=== PATIENT | male | born 1965 | race Caucasian/White ===

== ENCOUNTER 2019-01-20 17:54 | Emergency (ER) | payer BC, SELFPAY ==
[~2019-01-20] VITALS: Ht 172.7 cm; Wt 83.2 kg
[2019-01-20] MEDS ORDERED: SUCCINYLCHOLINE 100 MG/5 ML SYRINGE (J0330) ONE (17:55)
[2019-01-20] MEDS ORDERED: ETOMIDATE INJ 20MG/10ML VIAL ONE (17:55)
[2019-01-20] MEDS ORDERED: VECURONIUM BROMIDE 10 MG VIAL ONE (17:55)
[2019-01-20] MEDS ORDERED: DULC5TAB PO (18:08)
[2019-01-20] MEDS ORDERED: MIRA3350 PO (18:08)
[2019-01-20 19:15] LABS: BASO # 0.1 10^3/uL (0.0-0.2); BASO % 0.9 % (0.0-1.0); EOS % 0.4 % (0.0-3.0); HEMATOCRIT 44.5 % (42.0-52.0); HEMOGLOBIN 14.9 g/dl (13.5-17.5); LYMPH # 2.2 10^3/uL (1.5-4.5); LYMPH % 23.1 % (24.0-44.0); MEAN CORPUSCULAR HEMOGLOBIN 32.5 pg (27.0-33.0); MEAN CORPUSCULAR HGB CONC 33.5 g/dl (32.0-36.5); MEAN CORPUSCULAR VOLUME 96.9 fl (80.0-96.0); MONO # 1.1 10^3/uL (0.0-0.8); MONO % 12.2 % (0.0-5.0); NEUTROPHILS # 5.9 10^3/uL (1.8-7.7); NEUTROPHILS % 63.1 % (36.0-66.0); PLATELET COUNT, AUTOMATED 224 10^3/uL (150-450); RED BLOOD COUNT 4.59 10^6/uL (4.30-6.10); WHITE BLOOD COUNT 9.4 10^3/uL (4.0-10.0)
[2019-01-20 19:26] LABS: INR 1.4; PARTIAL THROMBOPLASTIN TIME 29.5 SECONDS (25.0-38.4); PROTHROMBIN TIME 16.9 SECONDS (11.8-14.0)
[2019-01-20] MEDS ORDERED: FUROSEMIDE 20 MG/2 ML VIAL (J1940) IV ONE (19:30)
[2019-01-20 19:34] LABS: ETHYL ALCOHOL (ETHANOL) 0.239 % (0.000-0.010)
[2019-01-20 19:42] LABS: ALBUMIN 3.6 GM/DL (3.2-5.2); ALT/SGPT 88 U/L (12-78); BILIRUBIN,DIRECT 0.5 MG/DL (0.0-0.2); BILIRUBIN,TOTAL 0.9 MG/DL (0.2-1.0); BLOOD UREA NITROGEN 10 MG/DL (7-18); CALCIUM LEVEL 8.9 MG/DL (8.5-10.1); CARBON DIOXIDE LEVEL 21 MEQ/L (21-32); CHLORIDE LEVEL 109 MEQ/L (98-107); CK-MB VALUE MASS 3.1 NG/ML (<3.6); CPK CREATINE PHOSPHOKINASE 254 U/L (39-308); CREATININE FOR GFR 0.89 MG/DL (0.70-1.30); GLOMERULAR FILTRATION RATE > 60.0 (>56); GLUCOSE, FASTING 99 MG/DL (70-100); LIPASE 70 U/L (73-393); MB/CK RELATIVE INDEX 1.22 (< OR =4); POTASSIUM SERUM 3.9 MEQ/L (3.5-5.1); SODIUM LEVEL 141 MEQ/L (136-145); TOTAL PROTEIN 6.3 GM/DL (6.4-8.2); TROPONIN I 1.36 NG/ML (< 0.10)
[2019-01-20] MEDS ORDERED: FUROSEMIDE 100 MG/10 ML VIAL (J1940) IV ONE (20:15)
[2019-01-20] MEDS ORDERED: FLECAINIDE 50MG TABLET PO ONE (20:15)
[2019-01-20] MEDS ORDERED: ISOVUE-370 76% 100ML VIAL (Q9967) As Ordered ONE (20:25)
[2019-01-20] MEDS ORDERED: METOPROLOL 5 MG/5 ML VIAL IV STA ×2 (21:07→23:22)
[2019-01-20] MEDS: FLECAINIDE 50MG TABLET PO ONE ×2 (21:26→21:30)
[2019-01-20] MEDS ORDERED: NOREPINEPHRINE BITARTRATE 8 MG in D5W 492 ML IV SCH (22:15)
--- NOTE | 2019-01-20 22:21 | REPVR ---
EXAM: CT Angiography Chest With Contrast EXAM DATE/TIME: 01/20/2019 9:01 PM CLINICAL HISTORY: 53 years old, male; Chest pain; Additional info: SOB, pitting le edema, afib new TECHNIQUE: Imaging protocol: Axial computed tomographic angiography images of the chest with intravenous contrast using CT angiography protocol. Coronal and sagittal reformatted images were created and reviewed. 3D rendering: MIP reconstructed images were created and reviewed. Radiation optimization: All CT scans at this facility use at least one of these dose optimization techniques: automated exposure control; mA and/or kV adjustment per patient size (includes targeted exams where dose is matched to clinical indication); or iterative reconstruction. Contrast material: ISOVUE 370;Contrast volume: 100 ml;Contrast route: IV; COMPARISON: No relevant prior studies available. FINDINGS: Pulmonary arteries: Contrast opacification satisfactory. No intraluminal filling defect. Aorta: Unremarkable. No aneurysm or dissection. Inferior vena cava: Reflux of contrast into the intrahepatic IVC and hepatic veins, suggesting right-sided heart failure. Lungs: Mild linear stranding and groundglass, likely due to atelectasis and/or scarring. No focal consolidation. Pleural space: Small right pleural effusion. No pneumothorax. Heart: Mild to moderate cardiomegaly. No pericardial effusion. Mediastinum: Small hiatal hernia. Diaphragm: Elevated right hemidiaphragm. Lymph nodes: Small mediastinal lymph nodes, nonspecific in appearance. No pathologically enlarged lymph nodes. Bones/joints: No acute osseous abnormality. Degenerative changes. Old fracture of the sternal body. Soft tissues: Unremarkable. IMPRESSION: 1. No CT evidence of pulmonary embolism. 2. Cardiomegaly with evidence of right-sided heart failure. 3. Small right pleural effusion. 4. Additional findings, as above. Electronically signed by: Arvin Hinkle On 01/20/2019 22:21:16 PM
--- NOTE | 2019-01-20 22:29 | REPVR ---
EXAM: CT Abdomen and Pelvis With Contrast EXAM DATE/TIME: 01/20/2019 9:01 PM CLINICAL HISTORY: 53 years old, male; Abdominal pain; Generalized; Additional info: Epigastric, llq abd pain, SOB TECHNIQUE: Imaging protocol: Axial computed tomography images of the abdomen and pelvis with intravenous contrast. Coronal and sagittal reformatted images were created and reviewed. Radiation optimization: All CT scans at this facility use at least one of these dose optimization techniques: automated exposure control; mA and/or kV adjustment per patient size (includes targeted exams where dose is matched to clinical indication); or iterative reconstruction. Contrast material: ISOVUE 370;Contrast volume: 100 ml;Contrast route: IV; COMPARISON: No relevant prior studies available. FINDINGS: Liver: Unremarkable. Gallbladder and bile ducts: Mild to moderate gallbladder wall thickening and/or pericholecystic edema. No radiodense gallstones. Pancreas: Unremarkable. Spleen: Unremarkable. Adrenals: Unremarkable. Kidneys and ureters: 4.9 x 2.8 cm right renal cyst. No radiodense calculi. No hydronephrosis. Stomach and bowel: No bowel wall thickening. No obstruction. No pneumatosis. Appendix: Appendix not identified with certainty but no right lower quadrant inflammatory change to suggest acute appendicitis. Intraperitoneal space: Trace nonspecific ascites. No organized fluid collection. No free air. Vasculature: Unremarkable. No aneurysm. Lymph nodes: No pathologically enlarged lymph nodes. Bladder: Mild circumferential urinary bladder wall thickening. Reproductive: Unremarkable. Bones/joints: No acute osseous abnormality. Osteopenia. Degenerative changes. Soft tissues: Small, fat-containing umbilical hernia. IMPRESSION: 1. Mild to moderate gallbladder wall thickening and/or pericholecystic edema without radiodense gallstones. If clinically indicated, ultrasound or HIDA scan would provide a more sensitive evaluation for acute gallbladder pathology. 2. Mild circumferential urinary bladder wall thickening. Correlate with urinalysis to exclude cystitis. 3. Additional findings, as above. Electronically signed by: Arvin Hinkle On 01/20/2019 22:29:43 PM
[2019-01-20] MEDS ORDERED: IPRATROPIUM 0.5MG/ALBUTEROL 2.5MG INH SOL UD 3ML (DUONEB)(J7620) NEB SCH (23:00)
[2019-01-20 23:40] VITALS: BP 128/77
[2019-01-20] MEDS ORDERED: SUCCINYLCHOLINE INJ 200 MG/10 ML VIAL (J0330) IV ONE (23:45)
[2019-01-20] MEDS ORDERED: ETOMIDATE INJ 20MG/10ML VIAL IV ONE (23:45)
[2019-01-20] MEDS ORDERED: VECURONIUM BROMIDE 10 MG VIAL IV ONE (23:45)
--- NOTE | 2019-01-20 23:46 | REPVR ---
EXAM: CT Head Without Contrast EXAM DATE/TIME: 01/20/2019 11:34 PM CLINICAL HISTORY: 53 years old, male; Other: SOB; Additional info: Fall TECHNIQUE: Imaging protocol: Computed tomography images of the head without contrast. Radiation optimization: All CT scans at this facility use at least one of these dose optimization techniques: automated exposure control; mA and/or kV adjustment per patient size (includes targeted exams where dose is matched to clinical indication); or iterative reconstruction. COMPARISON: No relevant prior studies available. FINDINGS: Brain: No CT evidence of acute intracranial hemorrhage or acute territorial infarction. No significant mass effect or midline shift. Basal cisterns patent. Ventricles: Normal in size and configuration. Bones/joints: No acute osseous abnormality. Sinuses: Minimal ethmoid and left maxillary sinus mucosal thickening. Mastoid air cells: Grossly unremarkable. Soft tissues: Grossly unremarkable. IMPRESSION: 1. No CT evidence of acute intracranial pathology. 2. Additional findings, as above. Electronically signed by: Arvin Hinkle On 01/20/2019 23:46:45 PM
[2019-01-21] MEDS ORDERED: DIGOXIN INJ 0.5 MG/2 ML AMP (J1160) IV STA (00:16)
[2019-01-21] MEDS ORDERED: PROPOFOL 1,000 MG/100 ML VIAL As Ordered ONE ×2 (00:33→03:38)
[2019-01-21 00:40] LABS: CK-MB VALUE MASS 3.1 NG/ML (<3.6); MB/CK RELATIVE INDEX 1.26 (< OR =4); TROPONIN I 1.35 NG/ML (< 0.10)
[2019-01-21] MEDS ORDERED: PROPOFOL 1,000 MG in APPROPRIATE DILUENT 1 EA IV STA (00:40)
[2019-01-21 03:32] VITALS: BP 120/84
--- NOTE | 2019-01-21 05:42 | ECGEPIP ---
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
--- NOTE | 2019-01-21 09:17 | REP ---
PORTABLE CHEST X-RAY: Single view. 11:03 p.m. film. HISTORY: Line placement. COMPARISON STUDY: 10:38 p.m. film January 20, 2019. FINDINGS: A right internal jugular central venous line has been inserted with its tip in the expected location of the superior vena cava. There is no evidence of pneumothorax. Endotracheal tube remains in good position at the level of proximal clavicles. Moderate cardiac enlargement is again noted. No evidence of infiltrate, effusion, or pulmonary edema. Electronically Signed by Silas Ruffin MD 01/21/2019 07:29 P
--- NOTE | 2019-01-21 09:44 | REP ---
Portable chest x-ray: Single view. History: Post intubation. No comparison chest x-ray. Comparison is made with chest CT study from earlier this date. Findings: Moderate cardiomegaly is observed. An endotracheal tube has been passed into good position at the level of the proximal clavicles. EKG electrodes are seen. The lungs are somewhat hypoinflated no focal infiltrate is seen. There is no evidence of pleural effusion or pulmonary edema. There is a skin fold overlying the left chest. Impression: Cardiomegaly. Endotracheal tube in good position. Electronically Signed by Silas Ruffin MD 01/21/2019 09:35 A
== END 2019-01-21 03:35 | disposition short-term general hospital (02) ==
LOC: M ED 17:54
DX: R00.0 Tachycardia, unspecified (principal); I50.9 Heart failure, unspecified; I48.91 Unspecified atrial fibrillation; I45.10 Unspecified right bundle-branch block; I51.7 Cardiomegaly; F10.10 Alcohol abuse, uncomplicated; F17.220 Nicotine dependence, chewing tobacco, uncomplicated; Z79.899 Other long term (current) drug therapy
CPT/HCPCS: 31500; 36556; 36600; 51702; 70450; 71045; 71275; 74177; 80048; 80076; 82140; 82550; 82553; 82803; 83605; 83690; 83880; 84484; 85025; 85610; 85730; 93005; 96374; 96375; 96376; 99291; G0480; J0330; J1160; J1940; Q9967

== ENCOUNTER 2019-03-20 07:45 | Emergency (ER) | payer OTHER, SELFPAY ==
[~2019-03-20] VITALS: Ht 172.7 cm; Wt 74.5 kg
[~2019-03-20 07:45] MED LIST: DULC5TAB PO; MIRA3350 PO
[2019-03-20] MEDS ORDERED: FURO40TA2 (07:58)
[2019-03-20] MEDS ORDERED: WARF4TAB51 (07:58)
[2019-03-20] MEDS ORDERED: ATOR40TA75 (07:58)
[2019-03-20] MEDS ORDERED: LEXA5TAB13 (07:58)
[2019-03-20] MEDS ORDERED: ENTR1TAB (07:58)
[2019-03-20] MEDS ORDERED: THIA100T14 (07:58)
[2019-03-20] MEDS ORDERED: METO1TAB7 (07:58)
[2019-03-20] MEDS ORDERED: SPIR-10 (07:58)
[2019-03-20] MEDS ORDERED: MAG400TA (07:58)
[2019-03-20] MEDS ORDERED: FOLI1TAB11 (07:58)
[2019-03-20] MEDS ORDERED: WARF-23 PO (07:58)
[2019-03-20] MEDS ORDERED: ASPI-1 PO (07:58)
[2019-03-20 08:37] LABS: BASO % 0.3 % (0.0-1.0); EOS # 0.1 10^3/uL (0.0-0.5); EOS % 0.5 % (0.0-3.0); HEMOGLOBIN 15.7 g/dl (13.5-17.5); LYMPH % 7.7 % (24.0-44.0); MEAN CORPUSCULAR HEMOGLOBIN 31.9 pg (27.0-33.0); MEAN CORPUSCULAR HGB CONC 34.1 g/dl (32.0-36.5); MEAN CORPUSCULAR VOLUME 93.5 fl (80.0-96.0); MONO # 0.7 10^3/uL (0.0-0.8); NEUTROPHILS # 11.4 10^3/uL (1.5-8.5); PLATELET COUNT, AUTOMATED 242 10^3/uL (150-450); RED BLOOD COUNT 4.92 10^6/uL (4.30-6.10); WHITE BLOOD COUNT 13.3 10^3/uL (4.0-10.0)
[2019-03-20] MEDS ORDERED: MORPHINE 4 MG/ML 1ML VIAL/SYRINGE (J2270) IV ONE (08:45)
[2019-03-20] MEDS ORDERED: NS 1,000 ML IV ONE (08:45)
[2019-03-20] MEDS ORDERED: ONDANSETRON 4MG/2ML VIAL (J2405) IV ONE (08:45)
[2019-03-20 08:47] LABS: INR 2.58; PROTHROMBIN TIME 27.5 SECONDS (11.8-14.0)
[2019-03-20 08:48] LABS: PARTIAL THROMBOPLASTIN TIME 36.5 SECONDS (25.0-38.4)
[2019-03-20 09:08] LABS: BLOOD UREA NITROGEN 10 MG/DL (7-18); CREATININE FOR GFR 0.84 MG/DL (0.70-1.30); GLUCOSE, FASTING 110 MG/DL (70-100)
[2019-03-20 09:09] LABS: ALBUMIN 4.3 GM/DL (3.2-5.2); ALT/SGPT 25 U/L (12-78); BILIRUBIN,DIRECT 0.5 MG/DL (0.0-0.2); BILIRUBIN,TOTAL 1.7 MG/DL (0.2-1.0); CALCIUM LEVEL 9.8 MG/DL (8.5-10.1); CARBON DIOXIDE LEVEL 25 MEQ/L (21-32); CHLORIDE LEVEL 104 MEQ/L (98-107); GLOMERULAR FILTRATION RATE > 60.0 (>56); LIPASE 78 U/L (73-393); POTASSIUM SERUM 4.6 MEQ/L (3.5-5.1); SODIUM LEVEL 137 MEQ/L (136-145); TOTAL PROTEIN 7.5 GM/DL (6.4-8.2)
[2019-03-20] MEDS ORDERED: ISOVUE-370 76% 100ML VIAL (Q9967) As Ordered ONE (09:40)
--- NOTE | 2019-03-20 10:23 | REP ---
CT of the abdomen and pelvis with IV contrast, without bowel contrast for generalized abdominal pain: Comparison is 01/20/2019. The visualized lung oakley are unremarkable. The right pleural effusion on the prior study has resolved. The hepatic parenchyma, gallbladder, pancreas and spleen are unremarkable. The gallbladder wall thickening identified previously has resolved. There is a right adrenal 4.6 cm hypodense mass with CT density of 7.9, compatible with benign adenoma. This is unchanged. There are no other comparison studies. The left adrenal is unremarkable. The right kidney is unremarkable. There is a focal left renal cortical scar laterally at the mid pole. This was not present previously. This could represent residual from renal infarct or pyelonephritis. There is no perinephric stranding. The abdominal aorta is unremarkable. There is no periaortic adenopathy or mass. There are diverticula in the sigmoid colon. There is pericolonic phlegmon adjacent to the diverticula, compatible with diverticulitis. This is a change from the prior study. There is no focal fluid collection to suggest pericolonic abscess. There is no pneumoperitoneum. There is no ascites. Pelvis: The the patient has an appendectomy. The cecum is on a redundant mesentery and resides medial to the descending colon. There is wall thickening of the terminal ileum and distal small bowel loops compatible with enteritis in the appropriate clinical setting. . There is circumferential bladder wall thickening, however, the bladder is incompletely distended and the wall thickening could be artifact. There is no pelvic ascites or adenopathy. Impression: Diverticulitis of the sigmoid colon. No there is pericolonic phlegmon but no pericolonic abscess. No pneumoperitoneum or ascites. Wall thickening of the terminal ileum and distal ileal loops compatible with enteritis in the appropriate clinical setting. Focal left renal cortical scar at the mid pole laterally compatible with residual of renal infarct or pyelonephritis. The previous gallbladder wall thickening has resolved. 4.6 cm hypodense right adrenal mass compatible with benign adenoma. Electronically Signed by Hardy Pike MD 03/20/2019 10:14 A
[2019-03-20] MEDS ORDERED: CIPROFLOXACIN 400 MG in IV 1 EA IV ONE (11:00)
[2019-03-20] MEDS ORDERED: metroNIDAZOLE (FLAGYL) 500 MG TAB PO ONE (11:30)
[2019-03-20] MEDS ORDERED: FLAG500T PO (12:06)
[2019-03-20] MEDS ORDERED: CIPR-249 PO (12:06)
[2019-03-20] MEDS ORDERED: NORC1TAB7 PO (12:08)
[2019-03-20 12:31] VITALS: BP 128/84
--- NOTE | 2019-03-21 07:42 | ED PDOC ---
Post-Departure Follow-Up dr messer faxed formal report of ct abd/p for fu Annie Stevenson MD Mar 21, 2019 07:42
== END 2019-03-20 12:45 | disposition home or self-care (01) ==
LOC: M ED 07:45
DX: K57.32 Diverticulitis of large intestine without perforation or abscess without bleeding (principal); E27.9 Disorder of adrenal gland, unspecified; Z86.73 Personal history of transient ischemic attack (TIA), and cerebral infarction without residual deficits; I50.9 Heart failure, unspecified; I48.91 Unspecified atrial fibrillation; E78.00 Pure hypercholesterolemia, unspecified; Z79.82 Long term (current) use of aspirin; Z79.01 Long term (current) use of anticoagulants; Z79.899 Other long term (current) drug therapy
CPT/HCPCS: 36415; 74177; 80048; 80076; 83690; 85025; 85610; 85730; 96361; 96365; 96375; 99284; J0744; J2270; J2405; Q9967

== ENCOUNTER 2020-09-29 13:26 | Emergency (ER) | payer OTHER ==
[~2020-09-29] VITALS: Ht 175.3 cm; Wt 75.0 kg
[~2020-09-29 13:26] MED LIST changes: +ASPI-1 PO; +ATOR40TA75; +CIPR-249 PO; +ENTR1TAB; +FLAG500T PO; +FOLI1TAB11; +FURO40TA2; +LEXA5TAB13; +MAGN400T35; +METO1TAB7; +NORC1TAB7 PO; +SPIR-10; +THIA100T14; +WARF-23 PO; +WARF4TAB51
[2020-09-29 14:13] LABS: HEMATOCRIT 45.5 % (42.0-52.0); HEMOGLOBIN 15.5 g/dl (13.5-17.5); MEAN CORPUSCULAR HGB CONC 34.1 g/dl (32.0-36.5); PLATELET COUNT, AUTOMATED 280 10^3/uL (150-450); RED BLOOD COUNT 4.84 10^6/uL (4.30-6.10); WHITE BLOOD COUNT 4.8 10^3/uL (4.0-10.0)
[2020-09-29 14:48] LABS: AMPHETAMINES LEVEL URINE NEGATIVE (NEGATIVE); BARBITURATES URINE NEGATIVE (NEGATIVE); BENZODIAZEPINES URINE NEGATIVE (NEGATIVE); CANNABINOIDS URINE POSITIVE (NEGATIVE); COCAINE METABOLITE URINE NEGATIVE (NEGATIVE); METHADONE URINE NEGATIVE (NEGATIVE); OPIATES URINE NEGATIVE (NEGATIVE); PHENCYCLIDINE URINE NEGATIVE (NEGATIVE)
[2020-09-29 14:48] LABS: ACETAMINOPHEN LEVEL < 2.0 UG/ML (10.0-30.0); ALBUMIN 4.3 GM/DL (3.2-5.2); ALT/SGPT 40 U/L (12-78); BILIRUBIN,DIRECT 0.3 MG/DL (0.0-0.2); BILIRUBIN,TOTAL 0.6 MG/DL (0.2-1.0); BLOOD UREA NITROGEN 2 MG/DL (7-18); CALCIUM LEVEL 9.1 MG/DL (8.5-10.1); CARBON DIOXIDE LEVEL 29 MEQ/L (21-32); CHLORIDE LEVEL 106 MEQ/L (98-107); CREATININE FOR GFR 0.66 MG/DL (0.70-1.30); ETHYL ALCOHOL (ETHANOL) 0.136 % (0.000-0.010); GLOMERULAR FILTRATION RATE > 60.0 (>56); GLUCOSE, FASTING 110 MG/DL (70-100); SALICYLATE LEVEL < 1.7 MG/DL (5.0-30.0); SODIUM LEVEL 140 MEQ/L (136-145); TOTAL PROTEIN 7.4 GM/DL (6.4-8.2)
[2020-09-29] MEDS ORDERED: LORazepam 2 MG/ML VIAL IV STA (16:17)
[2020-09-29] MEDS ORDERED: CARV3.12 (16:50)
[2020-09-29] MEDS ORDERED: NALT50TA4 (16:50)
[2020-09-29] MEDS ORDERED: LEXA1TAB (16:50)
[2020-09-29] MEDS ORDERED: ENTR1TAB7 (16:50)
[2020-09-29] MEDS ORDERED: ELIQ5TAB (16:50)
[2020-09-29] MEDS ORDERED: LORazepam 2 MG/ML VIAL As Ordered ONE (17:04)
[2020-09-29 17:12] LABS: INR 1.03; PROTHROMBIN TIME 13.7 SECONDS (12.5-14.3)
[2020-09-30 00:45] VITALS: BP 176/98
--- NOTE | 2020-09-30 12:59 | ECGEPIP ---
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
== END 2020-09-30 00:42 | disposition home or self-care (01) ==
LOC: M ED 13:26
DX: F10.129 Alcohol abuse with intoxication, unspecified (principal); F43.0 Acute stress reaction; F07.89 Other personality and behavioral disorders due to known physiological condition; I48.91 Unspecified atrial fibrillation; I50.9 Heart failure, unspecified; Z79.02 Long term (current) use of antithrombotics/antiplatelets; Z79.82 Long term (current) use of aspirin; Z79.899 Other long term (current) drug therapy
CPT/HCPCS: 36415; 80048; 80076; 80143; 80307; 82077; 84443; 85027; 85610; 93005; 96374; 99285; J2060

== ENCOUNTER 2020-12-12 01:24 | Inpatient (IN) | payer OTHER ==
[~2020-12-12] VITALS: Ht 172.7 cm; Wt 67.2 kg
[~2020-12-12 01:24] MED LIST changes: +CARV3.12; +ELIQ5TAB; +ENTR1TAB7; +LEXA1TAB; +NALT50TA4
[2020-12-12 02:18] LABS: HEMATOCRIT 45.7 % (42.0-52.0); HEMOGLOBIN 15.1 g/dl (13.5-17.5); MEAN CORPUSCULAR HEMOGLOBIN 32.3 pg (27.0-33.0); MEAN CORPUSCULAR VOLUME 97.6 fl (80.0-96.0); PLATELET COUNT, AUTOMATED 262 10^3/uL (150-450); RED BLOOD COUNT 4.68 10^6/uL (4.30-6.10); WHITE BLOOD COUNT 8.3 10^3/uL (4.0-10.0)
[2020-12-12 02:35] LABS: AMPHETAMINES LEVEL URINE NEGATIVE (NEGATIVE); BARBITURATES URINE NEGATIVE (NEGATIVE); BENZODIAZEPINES URINE NEGATIVE (NEGATIVE); CANNABINOIDS URINE POSITIVE (NEGATIVE); COCAINE METABOLITE URINE NEGATIVE (NEGATIVE); METHADONE URINE NEGATIVE (NEGATIVE); OPIATES URINE NEGATIVE (NEGATIVE); PHENCYCLIDINE URINE NEGATIVE (NEGATIVE)
[2020-12-12 02:53] LABS: ACETAMINOPHEN LEVEL < 2.0 UG/ML (10.0-30.0); ALT/SGPT 28 U/L (12-78); BILIRUBIN,DIRECT 0.1 MG/DL (0.0-0.2); BILIRUBIN,TOTAL 0.4 MG/DL (0.2-1.0); BLOOD UREA NITROGEN 6 MG/DL (7-18); CALCIUM LEVEL 8.8 MG/DL (8.5-10.1); CARBON DIOXIDE LEVEL 22 MEQ/L (21-32); CHLORIDE LEVEL 110 MEQ/L (98-107); CREATININE FOR GFR 0.61 MG/DL (0.70-1.30); ETHYL ALCOHOL (ETHANOL) 0.185 % (0.000-0.010); GLOMERULAR FILTRATION RATE > 60.0 (>56); GLUCOSE, FASTING 83 MG/DL (70-100); POTASSIUM SERUM 3.9 MEQ/L (3.5-5.1); SALICYLATE LEVEL < 1.7 MG/DL (5.0-30.0); SODIUM LEVEL 142 MEQ/L (136-145); TOTAL PROTEIN 7.5 GM/DL (6.4-8.2)
[2020-12-12] MEDS ORDERED: ELIQ5TAB PO (11:52)
[2020-12-12] MEDS ORDERED: LEXA1TAB PO (11:52)
[2020-12-12] MEDS ORDERED: ATOR40TA75 PO (11:52)
[2020-12-12] MEDS ORDERED: FOLI1TAB11 PO (11:52)
[2020-12-12] MEDS ORDERED: MAGN400T3 PO (11:52)
[2020-12-12] MEDS ORDERED: ENTR1TAB7 PO (11:52)
[2020-12-12] MEDS ORDERED: METO1TAB7 PO (11:52)
[2020-12-12] MEDS ORDERED: HYDR-3363 PO (11:52)
[2020-12-12] MEDS ORDERED: COMMENTS (11:52)
[2020-12-12] MEDS ORDERED: NICOTINE 21MG/24HR 1 EA TRANSDERMAL TD ONE (13:00)
[2020-12-12] MEDS ORDERED: hydrOXYzine 25 MG TAB PO ONE (21:40)
[2020-12-13] MEDS: MAGNESIUM OXIDE 400MG TAB (MAG-OX) PO SCH (09:00)
[2020-12-13] MEDS: ENTRESTO 49-51MG TABLET (SACUBITRIL/VALSARTAN) PO SCH ×2 (09:00→20:06)
[2020-12-13] MEDS: METOPROLOL SUCC (TopROL XL) 50MG **XL** TAB PO SCH (09:00)
[2020-12-13] MEDS: APIXABAN 5 MG TAB (ELIQUIS) PO SCH ×2 (09:00→20:06)
[2020-12-13] MEDS: ESCITALOPRAM OXALATE 10 MG TAB (LEXAPRO) PO SCH (09:00)
[2020-12-13] MEDS: FOLIC ACID 1 MG TAB PO SCH (09:00)
[2020-12-13] MEDS: ATORVASTATIN 20 MG TAB PO SCH (09:00)
[2020-12-13] MEDS ORDERED: LORazepam 1 MG TAB PO STA (11:41)
[2020-12-13] MEDS ORDERED: LORazepam 0.5 MG TAB PO ONE (19:40)
[2020-12-14] MEDS: ESCITALOPRAM OXALATE 10 MG TAB (LEXAPRO) PO SCH (09:00)
[2020-12-14] MEDS: ATORVASTATIN 20 MG TAB PO SCH (09:00)
[2020-12-14] MEDS: FOLIC ACID 1 MG TAB PO SCH (09:48)
[2020-12-14] MEDS: METOPROLOL SUCC (TopROL XL) 50MG **XL** TAB PO SCH (09:48)
[2020-12-14] MEDS: MAGNESIUM OXIDE 400MG TAB (MAG-OX) PO SCH (09:48)
[2020-12-14] MEDS: APIXABAN 5 MG TAB (ELIQUIS) PO SCH ×2 (09:48→20:32)
[2020-12-14] MEDS: ENTRESTO 49-51MG TABLET (SACUBITRIL/VALSARTAN) PO SCH ×2 (10:32→20:33)
[2020-12-14 11:36] LABS: RSV AMPLIFICATION NEGATIVE (NEGATIVE)
[2020-12-14] MEDS ORDERED: MOM 30ML SUSPENSION UDC PO PRN (13:10)
[2020-12-14] MEDS ORDERED: LORazepam 2 MG TAB PO PRN (13:10)
[2020-12-14] MEDS ORDERED: ACETAMINOPHEN TAB 650MG DOSE (2X325MG) PO PRN (13:10)
[2020-12-14] MEDS ORDERED: OLANZapine ORAL DISINTEGRATING TAB 5MG PO PRN (13:10)
[2020-12-14] MEDS ORDERED: MAALOX 30 ML SUSP *UDC PO PRN (13:10)
[2020-12-14 15:49] VITALS: BP 121/73
[2020-12-14] MEDS: THIAMINE 100 MG TAB PO SCH ×2 (16:10→20:32)
[2020-12-14] MEDS: MULTIVITAMINS/MINERALS THERAP 1 TAB PO SCH (16:10)
[2020-12-14] MEDS: hydrOXYzine 25 MG TAB PO PRN (20:32)
[2020-12-14] MEDS: traZODone 50 MG TAB PO PRN (20:32)
[2020-12-15 06:23] VITALS: BP 128/68
[2020-12-15] MEDS: FOLIC ACID 1 MG TAB PO SCH (08:46)
[2020-12-15] MEDS: THIAMINE 100 MG TAB PO SCH ×2 (08:46→20:05)
[2020-12-15] MEDS: ENTRESTO 49-51MG TABLET (SACUBITRIL/VALSARTAN) PO SCH ×2 (08:47→20:05)
[2020-12-15] MEDS: MAGNESIUM OXIDE 400MG TAB (MAG-OX) PO SCH (08:47)
[2020-12-15] MEDS: MULTIVITAMINS/MINERALS THERAP 1 TAB PO SCH (08:47)
[2020-12-15] MEDS: METOPROLOL SUCC (TopROL XL) 50MG **XL** TAB PO SCH (08:47)
[2020-12-15] MEDS: APIXABAN 5 MG TAB (ELIQUIS) PO SCH ×2 (08:47→20:05)
[2020-12-15] MEDS: ESCITALOPRAM OXALATE 10 MG TAB (LEXAPRO) PO SCH (08:48)
[2020-12-15] MEDS: ATORVASTATIN 20 MG TAB PO SCH (08:48)
[2020-12-15] MEDS ORDERED: SERTRALINE HCL 50 MG TAB PO SCH (09:00)
[2020-12-15] MEDS: NICOTINE POLACRILEX 2 MG GUM PO PRN ×5 (09:38→20:07)
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
[2020-12-15 14:00] VITALS: BP 149/86
--- NOTE | 2020-12-15 15:57 | HPE ---
HISTORY AND PHYSICAL DATE OF ADMISSION: 12/14/2020 CHIEF COMPLAINT: Brought in police due to depression and suicidal evaluation. HISTORY OF PRESENT ILLNESS: A 55-year-old male, admitted to the inpatient mental health due to severe depression and evaluation for suicide attempt with past medical history significant for congestive heart failure, diastolic dysfunction, hypertension, cerebrovascular accident (CVA) without residual, chronic atrial fibrillation, right heel fracture and torn rotator cuff, admitted to the inpatient mental health unit with no acute medical complaints. Patient denies any weight gain, weight loss, chest pain, pressure, or tightness, shortness of breath, palpitations, lightheadedness, dizziness, near syncope, nausea, vomiting, diarrhea, abdominal pain, sore throat, ear discharge, tinnitus, vertigo, runny nose, changes in vision, blurred vision, diplopia, headaches, dysphagia, odynophagia, nausea, vomiting, diarrhea, abdominal pain, bright red blood per rectum, melena, black, tarry stools, dysuria, urgency, frequency, polyuria, polyphagia. All other systems are negative. Patient says that he is compliant with his medications, but he admits to not being compliant with fluid restriction and salt restriction. Usually eats [employer] and [employer] and a lot of fast food restaurants. MEDICAL HISTORY: 1. Diastolic congestive heart failure. 2. Chronic atrial fibrillation. Compliant with his Eliquis. 3. Hypertension. 4. CVA without residual. 5. Right heel fracture. 6. Torn rotator cuff. 7. Diverticulitis. 8. Alcohol intoxication. 9. Adenoma of the adrenal gland. 10. History of sinus tachycardia. PAST SURGICAL HISTORY: None. SOCIAL HISTORY: Patient denies any recreational drug use, alcohol abuse currently. Patient is . Was engaged for 7 years. Girlfriend left in June. 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 Has a GED. FAMILY HISTORY: Father , suicide. Had coronary artery disease (CAD), myocardial infarction (NH) at the age of 46. Mother in 2016. Had chronic obstructive pulmonary disease (COPD). REVIEW OF SYSTEMS: Per history of present illness (HPI). A 12-point system otherwise negative. PHYSICAL EXAMINATION: Temperature 97.5, pulse 65, respiratory rate 18, blood pressure 128/68, 100% on room air. GENERAL: Awake, alert, oriented to person, place, and time, answering questions appropriately. LUNGS: Clear to auscultation. No wheezing, rales, or rhonchi. No jugular venous distention (JVD), thyromegaly, or cervical lymphadenopathy. HEART: S1, S2, irregularly irregular. Not tachycardic. No murmurs noted. ABDOMEN: Soft, nontender, nondistended. Positive bowel sounds. EXTREMITIES: No cyanosis, clubbing, or pitting edema. SKIN: Multiple tattoos, bilateral upper extremities. LABORATORY DATA: CBC and metabolic panel on 12/12/2020 have all been reviewed. ASSESSMENT AND PLAN: A 55-year-old male with a history of chronic atrial fibrillation, congestive heart failure, hypertension, admitted to the inpatient mental health unit due to depression and suicide attempt evaluation. CURRENT ISSUES: 1. Depression with suicidal ideation and attempt. Psychiatric team managing current issues. 2. Congestive heart failure, diastolic dysfunction, compensated. 3. Chronic atrial fibrillation, on anticoagulation, rate controlled on home medications. 4. Hypertension, stable. Resume on home medications. 5. Deep venous thrombosis (DVT) prophylaxis, on anticoagulation, Eliquis 5 mg twice a day. Hospitalist will sign off. Please re-consult if any acute issues occur.
[2020-12-15 19:03] VITALS: BP 149/86
[2020-12-15] MEDS: traZODone 50 MG TAB PO PRN (20:05)
[2020-12-15] MEDS ORDERED: CARVedilol 6.25 MG TAB PO SCH (21:00)
[2020-12-15] MEDS: hydrOXYzine 25 MG TAB PO PRN (22:50)
[2020-12-16 06:00] VITALS: BP 104/57
[2020-12-16 06:41] VITALS: BP 104/57
[2020-12-16] MEDS ORDERED: LEXA1TAB PO (09:24)
[2020-12-16] MEDS ORDERED: NICO2GUM PO (09:24)
[2020-12-16] MEDS: ESCITALOPRAM OXALATE 10 MG TAB (LEXAPRO) PO SCH (09:40)
[2020-12-16] MEDS: ATORVASTATIN 20 MG TAB PO SCH (09:40)
[2020-12-16] MEDS: MAGNESIUM OXIDE 400MG TAB (MAG-OX) PO SCH (09:41)
[2020-12-16] MEDS: APIXABAN 5 MG TAB (ELIQUIS) PO SCH (09:41)
[2020-12-16] MEDS: FOLIC ACID 1 MG TAB PO SCH (09:41)
[2020-12-16] MEDS: MULTIVITAMINS/MINERALS THERAP 1 TAB PO SCH (09:41)
[2020-12-16] MEDS: THIAMINE 100 MG TAB PO SCH (09:41)
[2020-12-16] MEDS: ENTRESTO 49-51MG TABLET (SACUBITRIL/VALSARTAN) PO SCH (09:42)
[2020-12-16 09:44] VITALS: BP 112/66
[2020-12-16] MEDS: METOPROLOL SUCC (TopROL XL) 50MG **XL** TAB PO SCH (09:44)
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
== END 2020-12-16 12:34 | disposition home or self-care (01) | DRG 753 ==
LOC: M ED 01:24 → M ED INP 12-14 13:08 → M PSY 12-14 15:52
PROVIDERS: ADMIT Psychiatry & Neurology Psychiatry; ATTEND Psychiatry & Neurology Psychiatry
DX: F32.89 Other specified depressive episodes (principal); F10.14 Alcohol abuse with alcohol-induced mood disorder; F10.120 Alcohol abuse with intoxication, uncomplicated; I50.32 Chronic diastolic (congestive) heart failure; I11.0 Hypertensive heart disease with heart failure; Z86.73 Personal history of transient ischemic attack (TIA), and cerebral infarction without residual deficits; I48.20 Chronic atrial fibrillation, unspecified; Z63.5 Disruption of family by separation and divorce; Z79.01 Long term (current) use of anticoagulants; Z79.899 Other long term (current) drug therapy; Z20.822 Contact with and (suspected) exposure to COVID-19; R45.851 Suicidal ideations